=== PATIENT | female | born 1985 | race Two or more races ===

== ENCOUNTER 2025-07-29 00:22 | Emergency (ER) | payer MEDICAID, SELFPAY ==
[2025-07-29 00:23] VITALS: BMI 32.9
[2025-07-29 00:47] VITALS: BP 129/78; PULSE 64; RESP 18; TEMP 36.9; O2SAT 98
--- NOTE | 2025-07-29 00:54 | PD.EDRME ---
Rapid Medical Screening Exam RME Arrival date/time: 07/29/25 00:22 40F with no significant PMH presents to ED with several hours of epigastric pain and N/V. Patient denies dysuria and diarrhea. Chief Complaint: Abdominal Pain Time Seen by Provider: 07/29/25 00:53 Vital signs: Vital Signs Temperature 98.5 F 07/29/25 00:47 Pulse Rate 64 07/29/25 00:47 Respiratory Rate 18 07/29/25 00:47 Blood Pressure 129/78 07/29/25 00:47 Pulse Oximetry (%) 98 07/29/25 00:47 Oxygen Delivery Method Room Air 07/29/25 00:47
[2025-07-29] MEDS: MG HYD/AL HYD/SIME (Maalox Reg) SUSP 30 ML UDC PO (00:57)
[2025-07-29] MEDS: FAMOTIDINE 20 MG TABLET 40 MG PO (00:57)
[2025-07-29] MEDS: ONDANSETRON ODT 4 MG TABRAP PO (00:58)
[2025-07-29 01:08] LABS: Basophils # (Auto) 0.0 Thou/mm3 (0.0-0.2); Basophils % (Auto) 0 % (0-2.5); Eosinophils # (Auto) 0.1 Thou/mm3 (0.0-0.5); Eosinophils % (Auto) 1 % (0-10); Hematocrit 38.4 % (36.0-46.0); Hemoglobin 12.7 g/dL (12.0-16.0); Immature Granulocytes Auto 0.02 Thou/mm3 (0.00-0.00); Lymphocytes # (Auto) 2.2 Thou/mm3 (1.0-4.8); Lymphocytes % (Auto) 27 % (10-50); Mean Corpuscular HGB Conc 33.1 g/dl (31.0-37.0); Mean Corpuscular Hemoglobin 30.0 pg (25.0-35.0); Mean Corpuscular Volume 91 fL (80-100); Monocytes # (Auto) 0.4 Thou/mm3 (0.0-0.8); Monocytes % (Auto) 5 % (0-12); Neutrophils # (Auto) 5.3 Thou/mm3 (1.8-7.7); Neutrophils % (Auto) 66 % (37-80); Nucleated Red Blood Cell # 0.00 Thou/mm3 (0.00-0.00); Nucleated Red Blood Cell % 0 /100 WBC (0); Platelet Count 282 Thou/mm3 (140-440); RDW Standard Deviation 41.8 fL (36.4-46.3); Red Blood Count 4.24 Miln/mm3 (4.00-5.20); White Blood Count 8.0 Thou/mm3 (3.6-11.0)
--- NOTE | 2025-07-29 01:11 | XR_ITS ---
Examination: Abdomen sonogram, Limited Date and time of exam: July 30, 2025, 0118 hrs. Indications: Epigastric pain beginning 12 hours ago. Technique: Fuller scale transabdominal sonographic images abdomen Findings: Normal gallbladder. Normal common bile duct 0.3 cm. Pancreatic head 2.0 cm. Liver 15.8 cm smooth contour no focal liver lesions. Normal hepatopedal portal venous flow. Patent IVC. Impression: Negative study.
[2025-07-29 01:24] LABS: Alanine Aminotransferase 13 U/L (10-49); Albumin, Serum 4.3 gm/dL (3.5-5.0); Albumin/Globulin Ratio 1.9 (1.2-2.2); Alkaline Phosphatase 76 U/L (46-116); Anion Gap 10 (7-16); Aspartate Amino Transferase 19 U/L (0-34); BUN/Creatinine Ratio 11 Ratio (12-20); Bilirubin,Total 0.4 mg/dL (0.3-1.2); Blood Urea Nitrogen 8 mg/dL (9-23); Calcium 9.4 mg/dL (8.3-10.6); Calcium (Corrected) 9.4 mg/dL (8.5-10.1); Carbon Dioxide 24.5 mMol/L (20.0-31.0); Chloride 107 mMol/L (98-107); Creatinine (Component) 0.7 mg/dL (0.6-1.3); Estimated Creatinine Clearance 104.7 mL/min (>60); Globulin 2.3 gm/dL (2.3-3.5); Glucose 116 mg/dL (74-106); Lipase 43 U/L (12-53); Osmolality,Calculated 280 (275-295); Potassium 3.9 mMol/L (3.4-5.1); Sodium 141 mMol/L (136-145); Total Protein 6.6 gm/dL (5.7-8.2); eGFR > 60 See Note
[2025-07-29 02:29] VITALS: BP 140/77; PULSE 56; RESP 18; TEMP 36.6; O2SAT 98
--- NOTE | 2025-07-29 03:14 | EDNOTE_ITS ---
ED Abdominal Pain RME/HPI General Chief Complaint: Abdominal Pain Stated complaint: STOMACH PAIN Time seen by provider: 07/29/25 00:53 Arrival date/time: 07/29/25 00:22 RME / HPI RME / HPI narrative: 07/29/25 00:22 40F with no significant PMH presents to ED with several hours of epigastric pain and N/V. Patient denies dysuria and diarrhea. DR. ROSEN MAIN ED EVALUATION: 40 y/o female presents to ED c/o epigastric abdominal pain and vomiting x approximately 24 hours. No other concerns or complaints expressed at this time. Related Data Previous Rx's ?Medication ?Instructions ?Recorded dicyclomine 20 mg tablet 20 mg PO QID PRN abdominal p ain 07/29/25 #20 tabs pantoprazole 40 mg tablet,delayed 40 mg PO QDAY #30 ta bs 07/29/25 release (Protonix) Allergies Allergy/AdvReac Type Severity Reaction Status Date / Time No Known Allergies Allergy Verified 07/29/25 00:26 Review of Systems Review of Systems Systems Reviewed: All systems reviewed, normal except as documented Past Medical History Past Medical History RESPIRATORY: Positive Respiratory Disorders and Bronchitis Surgical History SURGICAL: Positive Tubal Ligation ED Exam Narrative Physical exam: Generally patient is sleeping comfortably in no obvious distress, heart is regular rate and rhythm, lungs clear to auscultation equal bilaterally, abdomen soft bowel sounds present nondistended. Mild epigastric abdominal tenderness without rebound. No right upper quadrant abdominal tenderness. Extremities show no edema. Skin is warm pale and dry. Neurologic exam no focal motor or sensory deficits with Nahid Coma Scale of 15. Course Quality Measures none Orders Category Date Time Status US gall bladder Stat Exams 07/29/25 01:11 Taken CBC Stat Lab 07/29/25 01:01 Completed CMP [Comprehensive Metabolic Panel] Stat Lab 07/29/25 01:01 Completed Lipase Stat Lab 07/29/25 01:01 Completed Famotidine [Pepcid] Med 07/29/25 00:53 Discontinued 40 mg PO X1 ONE Ondansetron Odt [Zofran Odt] Med 07/29/25 00:53 Discontinued 4 mg PO X1 ONE mg Hyd/Al Hyd/Rohit Susp [Maalox Susp] Med 07/29/25 00:53 Discontinued 30 ml PO X1 ONE Vital Signs Vital signs: Vital Signs Temperature 98.5 F 07/29/25 00:47 Pulse Rate 64 07/29/25 00:47 Respiratory Rate 18 07/29/25 00:47 Blood Pressure 129/78 07/29/25 00:47 Pulse Oximetry (%) 98 07/29/25 00:47 Oxygen Delivery Method Room Air 07/29/25 00:47 Abdominal Pain MDM MDM Narrative MDM Narrative:: Scribe Attestation: I, Brenna Dutton, am scribing for and in the presence of Dr. Rosen. Provider Notation: Although this document has been carefully reviewed, there may still be some phonetic and other typographical errors. These errors are purely grammatical due to imperfections in the software program and should not be construed in any way to? compromise the substance of the patient's medical care during this visit. Differential diagnosis: Gastritis, gastroenteritis, gastroesophageal reflux disease, gallbladder disease I interpreted all labs. There was no leukocytosis. LFTs are normal. Abdominal exam was benign. I believe this patient has a gastritis versus gastroesophageal reflux disease. Patient will be discharged on Protonix and Bentyl to be taken as prescribed. Avoid hot spicy greasy fatty foods. Follow-up with her doctor. Return to ER as needed or if condition worsens. Patient data External records reviewed:: [facility] previous records (No prior ED records available for review.) Clinical information provided by:: patient Social determinants that could affect healthcare access:: none Patient has the following chronic illnesses:: None reported How is presenting disease/condition affected by chronic disease/condition?: no chronic disease Evaluation data The following diagnostics were reviewed and interpreted by me:: lab results and radiology exam(s) Lab and/or radiology exams considered but not ordered:: None Interpretation Summary: RADIOLOGY Gall Bladder US: Pending official radiology report. Medications / Prescriptions Medications or Prescriptions considered but not ordered:: None Medication administrations:: Medication Administration History Discontinued Medications Al Hydrox/Mg Hydrox/Simethicone (Mg Hyd/Al Hyd/Rohit (Maalox Reg) Susp 30 Ml Udc) 30 ml PO X1 ONE Stop: 07/29/25 00:54 Last Admin: 07/29/25 00:57 Dose: 30 ml Documented By: MM Famotidine (Famotidine 20 Mg Tablet) 40 mg PO X1 ONE Stop: 07/29/25 00:54 Last Admin: 07/29/25 00:57 Dose: 40 mg Documented By: MM Ondansetron HCl (Ondansetron Odt 4 Mg Tabrap) 4 mg PO X1 ONE; Protocol Stop: 07/29/25 00:54 Last Admin: 07/29/25 00:58 Dose: 4 mg Documented By: MM See above if any. Consultations Consultation(s) initiated? (list below): No Diagnosis Differential diagnosis abdominal pain: abdominal pain, acute appendicitis, calculus of kidney, constipation, diverticulitis, endometriosis, gastroenteritis, pancreatitis and small bowel obstruction Most likely diagnosis given after review of the tests above:: None Admission Indicated Admission indicated?: not indicated Explain why admission is indicated or not indicated:: Patient does not meet admission criteria. Admission Request Was there a request for admission?: No Disposition Plan Disposition Plan: Discharge Discharge Attestation Discharge Attestation: The patient and all family members were given an opportunity to ask questions and understood the discharge instructions. Discharge instructions specifically effects, indications for sooner follow up or return to the emergency department, and the expected course of current diagnosis. Patient condition: Stable Discharge Plan Plan Patient Disposition: HOME (Self Care) Prescriptions/Referrals Prescriptions/Med Rec: New pantoprazole [Protonix] 40 mg tablet,delayed release (DR/EC) 40 mg PO QDAY Qty: 30 0RF dicyclomine 20 mg tablet 20 mg PO QID PRN (Reason: abdominal pain) Qty: 20 0RF Problem List Clinical Impression: Gastritis Patient/Caregiver Discharge Instructions Education Materials: Understanding Gastritis Additional Instructions: Medication as prescribed. Avoid hot spicy greasy fatty foods. Follow-up with your doctor for further treatment and evaluation. Print Language: Vincentian Stand Alone Forms: [facility] Award Info., Patient Portal Info Letter
--- NOTE | 2025-07-29 03:37 | PRELIM_ITS ---
Gallbladder ultrasound with Doppler and wave Doppler spectral analysis. July 29, 2025 0118 hours Clinical history: Right upper quadrant/epigastric pain. Comparison: None. Findings: The visualized liver is normal in echogenicity without mass or ductal dilatation. No gallbladder calculus, wall thickening or pericholecystic fluid is identified. The common duct is normal in caliber at 3.1 mm. No free fluid is demonstrated on the submitted images. The portal vein is patent with hepatopetal flow and normal with Doppler spectral analysis. The hepatic veins are patent with normal wave Doppler spectral analysis. The IVC is patent with normal wave Doppler spectral analysis. Gibson's sign is not available at the time of this report. Impression: Unremarkable gallbladder sonogram. Report Electronically Signed By: Herman Canales 07/29/2025 3:36:36 AM [EST]
== END 2025-07-29 04:32 | disposition home or self-care (01) ==
LOC: SERX 03:43
PROVIDERS: Physician Assistant; Emergency Provider Emergency Medicine; PCP Physician Assistant
DX: K29.70 Gastritis, unspecified, without bleeding (principal)
CPT/HCPCS: 36415; 76705; 80053; 83690; 85025; 99283; Q0162; A9270